=== PATIENT | male | born 1955 | race Caucasian/White ===

== ENCOUNTER 2017-06-18 16:12 | Emergency (ER) | payer MEDICAID ==
[2017-06-18 16:12] VITALS: BMI 31.5
[2017-06-18 16:31] VITALS: BP 156/88; PULSE 83; RESP 16; TEMP 97.9; O2SAT 98
--- NOTE | 2017-06-18 17:12 | ED PDOC ---
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 Symptoms have progressively worsened. Denies fever or trauma. States he had cataract surgery 3 years ago in [place]. Patient is concerned he may need another surgery. Denies any swelling, headache , weakness, numbness, pain, pruritis, or discharge. PMD: Sanket Hollis Past Medical History Reviewed: Historical Data, Nursing Documentation, Vital Signs Vital Signs: Last Vital Signs Temp 97.9 F 06/18/17 16:25 Pulse 83 06/18/17 16:25 Resp 16 06/18/17 16:25 BP 156/88 H 06/18/17 16:25 Pulse Ox 98 06/18/17 16:25 - Medical History PMH: HTN, Hypercholesterolemia Denies: Arthritis, Asthma, Atrial Fibrillation, CHF, COPD, Diabetes, Seizures - Surgical History Surgical History: Denies: CABG, Pacemaker Other surgeries: Cataract surgery - Family History Family History: States: Unknown Family Hx Denies: CAD - Social History Current smoker - smoking cessation education provided: No Alcohol: None Drugs: Denies - Home Medications Home Medications: Ambulatory Orders Medication Instructions Recorded Levofloxacin [Levaquin] 500 mg PO DAILY #10 tab 03/06/15 Aspirin [Ecotrin] 11/12/15 Lisinopril [Zestril] 11/12/15 Erythromycin 0.5% [Erythromycin] 1 applic BOTHEYES Q6 #1 tube 06/18/17 - Allergies Allergies/Adverse Reactions: Allergies Allergy/AdvReac Type Severity Reaction Status Date / Time No Known Allergies Allergy Verified 06/18/17 16:25 Review of Systems ROS Statement: Except As Marked, All Systems Reviewed And Found Negative Constitutional: Negative for: Fever Eyes: Positive for: Vision Change (double vision bilaterally). Negative for: Pain, Other (pruritis, discharge, swelling) Neurological: Negative for: Weakness, Numbness, Headache Physical Exam - Reviewed Nursing Documentation Reviewed: Yes Vital Signs Reviewed: Yes - Physical Exam Appears: Positive for: Non-toxic, No Acute Distress Head Exam: Positive for: ATRAUMATIC, NORMAL INSPECTION, NORMOCEPHALIC Skin: Positive for: Normal Color, Warm, Dry Eye Exam: Positive for: EOMI, PERRL, Conjunctival injection (bilaterally). Negative for: Periorbital swelling, Periorbital tenderness Neck: Positive for: Normal, Painless ROM Cardiovascular/Chest: Positive for: Regular Rate, Rhythm Respiratory: Positive for: Normal Breath Sounds. Negative for: Accessory Muscle Use, Respiratory Distress Neurologic/Psych: Positive for: Alert, Oriented (x3), Gait (steady). Negative for: Aphasia, Facial Droop - ECG O2 Sat by Pulse Oximetry: 98 (RA) Pulse Ox Interpretation: Normal Medical Decision Making Medical Decision Making: Visual acuity performed by PAT Taylor: Left: 20/40 Right: 20/40 Time: 16:35 Plan: Patient is medically stable. Will d/c patient with prescription for Erythromycin drops. Advised to follow up with Dr. Spain, his primary doctor, or an certified surgical assistant for further evaluation. Scribe Attestation: Documented by Shruthi Shaver, acting as a scribe for Jonahtan Billy PA-C Provider Scribe Attestation: All medical record entries made by the Scribe were at my direction and personally dictated by me. I have reviewed the chart and agree that the record accurately reflects my personal performance of the history, physical exam, medical decision making, and the department course for this patient. I have also personally directed, reviewed, and agree with the discharge instructions and disposition. Disposition - Clinical Impression Clinical Impression: Conjunctivitis, Blurry vision - Patient ED Disposition Is Patient to be Admitted: No Counseled Patient/Family Regarding: Diagnosis, Need For Followup, Rx Given - Disposition Referrals: Raj Spain MD [Staff Provider] - Disposition: Routine/Home Disposition Time: 16:59 Condition: STABLE Additional Instructions: Follow up with Dr. Spain (eye doctor) or Dr. Hollis (your primary care doctor ) for further evaluation. Prescriptions: Erythromycin 0.5% [Erythromycin] 1 applic BOTHEYES Q6 #1 tube Instructions: Conjunctivitis (Pinkeye) (DC), Double Vision (DC) Forms: [facility] (Georgian) Print Language: AUSTRIAN - POA Present On Arrival: None
== END 2017-06-18 17:11 | disposition home or self-care (01) ==
LOC: H.ER 16:12
DX: H10.9 Unspecified conjunctivitis (principal); E78.00 Pure hypercholesterolemia, unspecified; H53.2 Diplopia; I10 Essential (primary) hypertension; Z79.82 Long term (current) use of aspirin

== ENCOUNTER 2017-10-22 10:44 | Emergency (ER) | payer MEDICAID ==
[2017-10-22 10:45] VITALS: BMI 31.5
[2017-10-22] MEDS ORDERED: Sodium Chloride 0.9% 1,000 ML IV STA (11:45)
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
[2017-10-22 12:45] LABS: BASO # 0.1 K/uL (0.0-0.2); BASO % 0.5 % (0.0-2.0); EOS # 0.1 K/uL (0.0-0.7); EOS % 0.4 % (0.0-4.0); HEMOGLOBIN 15.6 g/dL (12.0-18.0); LYMPH # 0.8 K/uL (1.0-4.3); MEAN CELL VOLUME 87.4 fl (80.0-94.0); MEAN CORPUSCULAR HEMOGLOBIN 29.3 pg (27.0-31.0); MEAN CORPUSCULAR HGB CONC 33.5 g/dL (33.0-37.0); MEAN PLATELET VOLUME 7.3 fl (7.2-11.7); MONO # 0.8 K/uL (0.0-0.8); MONO % 5.4 % (0.0-10.0); NEUT # 12.3 K/uL (1.8-7.0); NEUT % 87.7 % (50.0-75.0); PLATELET COUNT 234 K/uL (130-400); RBC 5.31 Mil/uL (4.40-5.90)
[2017-10-22 12:54] LABS: ALB/GLOB RATIO 1.2 (1.0-2.1); ALBUMIN 4.3 g/dL (3.5-5.0); ALT/SGPT 25 U/L (21-72); AST/SGOT 26 U/L (17-59); BLOOD UREA NITROGEN 17 mg/dl (9-20); CALCIUM 9.4 mg/dL (8.4-10.2); GFR AFRICAN-AMERICAN > 60; GFR NON-AFRICAN AMERICAN > 60; LIPASE 57 U/L (23-300)
[2017-10-22 12:58] LABS: INR 1.1 (0.9-1.2); PARTIAL THROMBOPLASTIN TIME 26.8 Seconds (25.6-37.1)
--- NOTE | 2017-10-22 13:42 | CARD ---
APPROVED REPORT EKG Measurement Heart [id number] CT [id number] [id number] <Conclusion> Normal sinus rhythm Normal ECG
[2017-10-22] MEDS ORDERED: Sodium Chloride 0.9% 100 ML ONE (14:08)
[2017-10-22] MEDS ORDERED: Iohexol 300 100 ML IJ ONE (14:08)
[2017-10-22 14:10] LABS: BANDS 1 % (0-2); BASOPHIL 1 % (0-2); LYMPHOCYTE 5 % (20-50); MONOCYTE 5 % (0-10); NEUTROPHIL 88 % (42-75); PLATELET ESTIMATE NORMAL (NORMAL); TOTAL CELLS COUNTED 100
--- NOTE | 2017-10-22 15:11 | CT ---
PROCEDURE: CT Abdomen and Pelvis with contrast HISTORY: Gen abd pain, vomiting COMPARISON: None. TECHNIQUE: Contrast dose: 99 mL Omnipaque 300 Radiation dose: Total exam DLP = 1063.0 mGy-cm. This CT exam was performed using one or more of the following dose reduction techniques: Automated exposure control, adjustment of the mA and/or kV according to patient size, and/or use of iterative reconstruction technique. FINDINGS: LOWER THORAX: Right lateral thoracic deformity. No focal consolidation pleural effusion. Heart size normal. LIVER: Unremarkable. No gross lesion or ductal dilatation. GALLBLADDER AND BILE DUCTS: Unremarkable. PANCREAS: Unremarkable. No gross lesion or ductal dilatation. SPLEEN: Unremarkable. ADRENALS: Unremarkable. No mass. KIDNEYS AND URETERS: Unremarkable. No hydronephrosis. No solid mass. VASCULATURE: Unremarkable. No aortic aneurysm. BOWEL: Unremarkable. No obstruction. No gross mural thickening. APPENDIX: Normal appendix. PERITONEUM: Tiny fat containing umbilical hernia with adjacent periumbilical fat containing hernia. Small left inguinal fat containing hernia. No free fluid. No free air. LYMPH NODES: Unremarkable. No enlarged lymph nodes. BLADDER: Unremarkable. REPRODUCTIVE: Prominent prostate. BONES: No acute fracture. Nonspecific patchy sclerotic appearance to sacrum and pelvic bones without discrete lesion. OTHER FINDINGS: None. IMPRESSION: No acute abdominal pelvic pathology. Prominent prostate. Nonspecific patchy sclerotic appearance to the sacrum and pelvic bones without discrete lesion.
[2017-10-22 15:46] VITALS: RESP 17
[2017-10-22 16:00] LABS: SQUAMOUS EPITHIAL 1 /hpf (0-5); URINE BACTERIA RARE (<OCC); URINE BILIRUBIN NEGATIVE (NEGATIVE); URINE BLOOD NEGATIVE (NEGATIVE); URINE CLARITY CLEAR (Clear); URINE COLOR YELLOW (YELLOW); URINE GLUCOSE (UA) NEG (Normal); URINE LEUKOCYTE ESTERASE NEG Leu/uL (Negative); URINE PROTEIN NEGATIVE (NEGATIVE); URINE UROBILINOGEN 0.2-1.0 mg/dL (0.2-1.0)
--- NOTE | 2017-10-22 16:45 | RAD ---
HISTORY: Abdominal pain. COMPARISON: 03/06/2015 TECHNIQUE: Chest PA and lateral FINDINGS: LUNGS: No active pulmonary disease. PLEURA: No significant pleural effusion identified. No pneumothorax apparent. CARDIOVASCULAR: No radiographic findings to suggest acute or significant cardiovascular disease. OSSEOUS STRUCTURES: No significant abnormalities. VISUALIZED UPPER ABDOMEN: Normal. OTHER FINDINGS: None. IMPRESSION: No active disease. No significant interval change compared to the prior examination(s).
[2017-10-22 17:45] VITALS: BP 139/67; PULSE 71; TEMP 97.8
[2017-10-23 18:15] VITALS: O2SAT 95
== END 2017-10-22 17:36 | disposition home or self-care (01) ==
LOC: H.ER 10:44
DX: R10.9 Unspecified abdominal pain (principal); E78.00 Pure hypercholesterolemia, unspecified; I10 Essential (primary) hypertension; Z79.82 Long term (current) use of aspirin
CPT/HCPCS: 71046; 74177; 80053; 81003; 83690; 85025; 85610; 85730; 93005; 96374; 96375; 99284; J2270; J2405; J7030; Q9967

== ENCOUNTER 2018-03-10 14:39 | Emergency (ER) | payer MEDICAID, OTHER ==
[2018-03-10 14:40] VITALS: BMI 31.5
[2018-03-10] MEDS ORDERED: Tuberculin 5 Units/0.1 ml Inj ID ONE (15:18)
--- NOTE | 2018-03-10 15:21 | ED PDOC ---
HPI: General Adult Time Seen by Provider: 03/10/18 15:15 Chief Complaint (Nursing): Cough, Cold, Congestion Chief Complaint (Provider): Medical Clearance History Per: Patient History/Exam Limitations: no limitations Onset/Duration Of Symptoms: Days Have you had recent travel within the past 21 days to any of the following countries: [place], [place], [place] or [place]?: Yes Additional Complaint(s): Castro Mojica is a 62 year old male with a past medical history of hypertension and hypercholesterolemia who was sent to the ED by PMD to rule out TB. Patient states that they were in [place] for 6 months and just came back last month. Other members of patients family are also in ED for evaluation, and he is currently asymptomatic. He denies any cough, congestion, or chest pain. PMD: Dr. Velasquez Past Medical History Reviewed: Historical Data, Nursing Documentation, Vital Signs Vital Signs: Last Vital Signs Temp 98.4 F 03/10/18 14:56 Pulse 81 03/10/18 14:56 Resp 16 03/10/18 14:56 BP 183/91 H 03/10/18 14:56 Pulse Ox 97 03/10/18 14:56 - Medical History PMH: HTN, Hypercholesterolemia Denies: Arthritis, Asthma, Atrial Fibrillation, CHF, COPD, Seizures - Surgical History Surgical History: No Surg Hx Denies: CABG, Pacemaker - Family History Family History: States: Unknown Family Hx - Social History Current smoker - smoking cessation education provided: No Alcohol: None Drugs: Denies - Home Medications Home Medications: Ambulatory Orders Medication Instructions Recorded Levofloxacin [Levaquin] 500 mg PO DAILY #10 tab 03/06/15 RX: Aspirin [Ecotrin] 11/12/15 RX: Lisinopril [Zestril] 11/12/15 RX: Erythromycin 0.5% 1 applic BOTHEYES Q6 #1 tube 06/18/17 [Erythromycin] Ibuprofen [Motrin] 600 mg PO Q6H PRN #20 tab 10/22/17 Ondansetron [Zofran Odt] 4 mg PO Q8H PRN #15 odt 10/22/17 - Allergies Allergies/Adverse Reactions: Allergies Allergy/AdvReac Type Severity Reaction Status Date / Time No Known Allergies Allergy Verified 10/22/17 11:21 Review of Systems ROS Statement: Except As Marked, All Systems Reviewed And Found Negative Constitutional: Negative for: Fever ENT: Negative for: Nose Congestion Cardiovascular: Negative for: Chest Pain Respiratory: Negative for: Cough Physical Exam - Reviewed Nursing Documentation Reviewed: Yes Vital Signs Reviewed: Yes - Physical Exam Appears: Positive for: Well, Non-toxic, No Acute Distress Head Exam: Positive for: ATRAUMATIC, NORMAL INSPECTION, NORMOCEPHALIC Skin: Positive for: Normal Color, Warm, DRY Eye Exam: Positive for: EOMI, Normal appearance, PERRL ENT: Positive for: Normal ENT Inspection Cardiovascular/Chest: Positive for: Regular Rate, Rhythm. Negative for: Murmur Respiratory: Positive for: Normal Breath Sounds. Negative for: Respiratory Distress Gastrointestinal/Abdominal: Positive for: Normal Exam, Soft. Negative for: Tenderness Back: Positive for: Normal Inspection Extremity: Positive for: Normal ROM. Negative for: Deformity, Swelling Neurologic/Psych: Positive for: Alert, Oriented. Negative for: Motor/Sensory Deficits - ECG O2 Sat by Pulse Oximetry: 97 (RA) Pulse Ox Interpretation: Normal Medical Decision Making Medical Decision Making: Time: 15:18 A/P: rule out TB --Chest X-Ray --Tubersol 5 tu ID Chest X-ray shows no signs of disease. Labs were unremarkable and physical exams were completely normal. Patient given PPD and will follow up with PMD at 1 pm on Thursday. Scribe Attestation: Documented by, Carri Harris acting as a scribe for Aliza Modi MD. Provider Scribe Attestation: All medical record entries made by the Scribe were at my direction and personally dictated by me. I have reviewed the chart and agree that the record accurately reflects my personal performance of the history, physical exam, medical decision making, and the department course for this patient. I have also personally directed, reviewed, and agree with the discharge instructions and disposition. Disposition - Clinical Impression Clinical Impression: Exposure to TB - Disposition Disposition: Routine/Home Disposition Time: 17:00 Condition: FAIR Additional Instructions: Follow up with your primary medical doctor as previously scheduled for Thursday at 1pm as previously scheduled. Instructions: General (DC) Forms: [facility] (Serbian) Print Language: URDU
--- NOTE | 2018-03-10 16:30 | RAD ---
Date of service: 03/10/2018 HISTORY: Rule out TB COMPARISON: 10/22/2017 TECHNIQUE: Chest PA and lateral FINDINGS: LINES AND TUBES: None. LUNG AND PLEURA: The lungs are well inflated and clear. No pleural effusion or pneumothorax. HEART AND MEDIASTINUM: The heart is not enlarged. No aortic atherosclerotic calcification present. The hilar and mediastinal contours are within normal limits. SKELETAL STRUCTURES: The bony structures are within normal limits for the patient's age. VISUALIZED UPPER ABDOMEN: Normal. OTHER FINDINGS: There is chronic elevation of the right hemidiaphragm. IMPRESSION: No active pulmonary disease.
[2018-03-10 17:21] VITALS: BP 152/76; PULSE 80; RESP 20; TEMP 97.6
[2018-03-16 06:01] VITALS: O2SAT 97
== END 2018-03-10 17:22 | disposition home or self-care (01) ==
LOC: H.ER 14:39
DX: I10 Essential (primary) hypertension (principal); Z20.1 Contact with and (suspected) exposure to tuberculosis; Z79.899 Other long term (current) drug therapy; Z79.82 Long term (current) use of aspirin; E78.00 Pure hypercholesterolemia, unspecified